=== PATIENT | female | born 1960 | race Caucasian/White ===

== ENCOUNTER → 2019-05-13 | Outpatient (CLI) | payer SELFPAY | PROVIDERS: Family Provider Nurse Practitioner Family; Visit Provider Nurse Practitioner Family | DX: K80.50 Calculus of bile duct without cholangitis or cholecystitis without obstruction (principal); S46.912S Strain of unspecified muscle, fascia and tendon at shoulder and upper arm level, left arm, sequela; X58.XXXS Exposure to other specified factors, sequela | CPT/HCPCS: 73221; 76705 ==

== ENCOUNTER → 2019-06-27 10:33 | Outpatient (BNVA) | payer MEDICARE, SELFPAY | PROVIDERS: Family Provider Nurse Practitioner Family; PCP Nurse Practitioner Family; Visit Provider Family Medicine | DX: R05 Cough (principal); M25.519 Pain in unspecified shoulder; E78.5 Hyperlipidemia, unspecified; M81.0 Age-related osteoporosis without current pathological fracture | CPT/HCPCS: 87804 ==

== ENCOUNTER → 2020-03-09 09:04 | Outpatient (BNVA) | payer MEDICARE, SELFPAY | PROVIDERS: Family Provider Nurse Practitioner Family; PCP Nurse Practitioner Family; Visit Provider Nurse Practitioner Family | DX: E78.5 Hyperlipidemia, unspecified (principal); K21.9 Gastro-esophageal reflux disease without esophagitis; M62.838 Other muscle spasm; C64.9 Malignant neoplasm of unspecified kidney, except renal pelvis; E78.00 Pure hypercholesterolemia, unspecified; Z23 Encounter for immunization; Z79.899 Other long term (current) drug therapy | CPT/HCPCS: 80053; 80061 ==

== ENCOUNTER → 2021-03-14 10:53 | Outpatient (BNVA) | payer MEDICARE, SELFPAY | PROVIDERS: Family Provider Nurse Practitioner Family; PCP Nurse Practitioner Family; Visit Provider Nurse Practitioner Family | DX: I10 Essential (primary) hypertension (principal); E78.5 Hyperlipidemia, unspecified | CPT/HCPCS: 80053; 80061 ==

== ENCOUNTER 2022-02-01 09:36 | Outpatient (CLI) | payer BC, SELFPAY ==
--- NOTE | 2022-02-01 10:00 | CT_ITS ---
WS: [id number] CT CERVICAL SPINE TECHNIQUE: Noncontrast CT of the cervical spine with coronal and sagittal reformatted images. CLINICAL INFORMATION: M54.2 - Cervicalgia COMPARISON: MRI 2014 DLP: 323.[address] scans at [facility] use at least one of these dose optimization techniques: automated e xposure control; mA and/or kV adjustment per patient size (includes targeted exams where dose is matc hed to clinical indication); or iterative reconstruction. FINDINGS: Straightening of the normal cervical lordosis. Prior postoperative changes ACDF C5-C7. Hardware appea rs in good position. Interbody fusion graft C5-C6 with evidence of bony bridging beyond the confines of the graft. Incomplete interbody fusion at C6-C7 with intradiscal lucency involving the peripheral disc space bilaterally. Small amount of bony bridging centrally. C2-C3: Normal C3-C4: Mild facet arthropathy. Osteophytic ridging. Mild central canal stenosis with tiny shallow cassandra tral protrusion. Mild bilateral bony foraminal narrowing LEFT greater than RIGHT. C4-C5: Disc osteophyte complex eccentric to the LEFT. Moderate LEFT bony foraminal narrowing. Mild ce ntral canal stenosis with slight contact of the LEFT ventral cervical cord. Mild facet arthropathy. M ild RIGHT foraminal narrowing. C5-C6: Postoperative changes ACDF. Mild LEFT foraminal narrowing. Spinal canal is patent. C6-C7: Postoperative changes anterior cervical fusion. Moderate to severe LEFT bony foraminal narrowi ng with LEFT eccentric osteophytic ridging. Spinal canal is patent. Mild RIGHT foraminal narrowing. C7-T1: Normal. Visualized posterior nasopharynx: Normal. Prevertebral soft tissues: Normal. CT/CT cervical spin wo con* [id number] IMPRESSION: 1. Straightening of the normal cervical lordosis with prior postoperative vazquez ges ACDF C5-C6 and anterior fusion C6-C7. 2. Solid-appearing bony bridging beyond the confines of the graft at C5-C6. Sm all amount of bony bridging centrally at C6-C7. 3. Fracture of the RIGHT C7 anterior fixation screw with slight angulation. 4. Mild central canal stenosis C3-C4 C4-C5 and C5-C6. 5. Moderate LEFT C4-C5 bony foraminal narrowing. Moderate LEFT C5-C6 bony fora jesus narrowing. Severe LEFT C6-C7 bony foraminal narrowing.
== END 2022-02-01 09:37 | disposition home or self-care (01) ==
LOC: RAD 09:37
PROVIDERS: PCP Nurse Practitioner Family; Visit Provider Nurse Practitioner Family
DX: M54.2 Cervicalgia (principal); M62.838 Other muscle spasm; Z98.1 Arthrodesis status; T84.296A Other mechanical complication of internal fixation device of vertebrae, initial encounter; M48.02 Spinal stenosis, cervical region
CPT/HCPCS: 72125

== ENCOUNTER 2022-03-23 06:14 | Outpatient (CLI) | payer BC, SELFPAY ==
--- NOTE | 2022-03-23 07:25 | MR_ITS ---
WS: [email or web address] MRI CERVICAL SPINE NONCONTRAST TECHNIQUE: Sagittal T1, T2 and STIR imaging. Axial T2, gradient, and fiesta imaging. CLINICAL INFORMATION: FAILED CERVICAL FUSION COMPARISON: CT February 01, 2022 and MRI January 30, 2014 FINDINGS: Straightening of the normal cervical lordosis. Prior postoperative changes ACDF C5-C7. Incomplete int erbody fusion noted at C6-C7 on the prior recent CT. Solid appearing interbody fusion C5-C6. Cord sig nal is normal. No high-grade central canal stenosis. C2-C3: Normal. C3-C4: Mild disc osteophytic ridging. Moderate facet arthropathy. Tiny central protrusion. Slight eff acement of ventral thecal sac. Spinal canal is patent. Foramen are patent. C4-C5: Prior postoperative changes ACDF. Mild LEFT and no significant RIGHT bony foraminal narrowing. Mild facet arthropathy. Spinal canal is patent. C5-C6: Postoperative changes ACDF. Mild LEFT bony foraminal narrowing. Mild facet arthropathy. Spinal canal is patent. C6-C7: Postoperative changes ACDF. Mild LEFT and no significant RIGHT foraminal narrowing. Spinal can al is patent. C7-T1: Osteophytic ridging with mild bilateral bony foraminal narrowing. Spinal canal is patent. No remarkable changes since the recent CT February 01, 2022. Alignment is unchanged since the MRI in 2013. Visualized brain stem structures: Normal. Prevertebral soft tissues: Normal. MR/MR cervical spin wo con* [id number] IMPRESSION: 1. Straightening of the normal cervical lordosis with prior ACDF C5-C7. 2. Cord signal is normal. No significant central canal stenosis. 3. Mild LEFT bony foraminal narrowing C4-C5 C5-C6 and C6-C7 worse at C6-C7. 4. Mild bilateral C7-T1 bony foraminal narrowing. 5. Moderate facet arthropathy C3-C4 and mild to moderate facet arthropathy C4- C5.
== END 2022-03-23 06:15 | disposition home or self-care (01) ==
PROVIDERS: PCP Nurse Practitioner Family; Visit Provider Nurse Practitioner Gerontology
DX: Z98.1 Arthrodesis status (principal); M47.892 Other spondylosis, cervical region; M48.02 Spinal stenosis, cervical region
CPT/HCPCS: 72141

== ENCOUNTER → 2022-09-15 08:53 | Outpatient (BNVA) | payer BC, SELFPAY | PROVIDERS: PCP Nurse Practitioner Family; Visit Provider Nurse Practitioner Family | DX: R53.83 Other fatigue (principal); E78.5 Hyperlipidemia, unspecified; I10 Essential (primary) hypertension | CPT/HCPCS: 80053; 80061; 84443 ==

== ENCOUNTER → 2022-12-18 15:44 | Outpatient (BNVA) | payer BC, SELFPAY | PROVIDERS: PCP Nurse Practitioner Family; Visit Provider Nurse Practitioner Family | DX: R53.83 Other fatigue (principal); I10 Essential (primary) hypertension | CPT/HCPCS: 80053; 85025 ==

== ENCOUNTER → 2023-05-02 09:00 | Outpatient (BNVA) | payer BC, SELFPAY | PROVIDERS: PCP Nurse Practitioner Family; Visit Provider Nurse Practitioner Women's Health | DX: R53.83 Other fatigue (principal) | CPT/HCPCS: 84439; 84443; 84481 ==

== ENCOUNTER 2023-05-21 11:04 | Outpatient (CLI) | payer MEDICARE, SELFPAY ==
--- NOTE | 2023-05-21 11:07 | MM_ITS ---
WS: [email or web address] BILATERAL 3D TOMOSYNTHESIS DIGITAL SCREENING MAMMOGRAPHY WITH CAD CLINICAL INFORMATION: Z12.39 - Encounter for other screening for malignant neop... HISTORY: Screening mammogram. No current complaints. COMPARISON: 2020 TECHNIQUE: Bilateral CC and MLO views. FINDINGS: The breasts are composed of heterogeneous fibroglandular density tissue, which can limit the detectio n of small underlying mass lesions. No suspicious mass, asymmetry, calcifications, or architectural d istortion. No evidence of malignancy. Vascular calcification. Incidental punctate calcifications. IMPRESSION: MM/[place] [id number] BI-RADS: 2-Benign FOLLOW UP: 1 Year Follow-up Recommend return to annual screening mammography.
== END 2023-05-21 11:05 | disposition home or self-care (01) ==
LOC: RAD 11:04
PROVIDERS: PCP Nurse Practitioner Family; Visit Provider Nurse Practitioner Women's Health
DX: Z12.31 Encounter for screening mammogram for malignant neoplasm of breast (principal)
CPT/HCPCS: 77063; 77067

== ENCOUNTER → 2023-08-13 15:04 | Outpatient (BNVA) | payer MEDICARE, SELFPAY | PROVIDERS: PCP Nurse Practitioner Family; Visit Provider Nurse Practitioner Family | DX: I10 Essential (primary) hypertension (principal); R53.83 Other fatigue | CPT/HCPCS: 80053; 80061; 85025 ==

== ENCOUNTER → 2023-09-18 12:33 | Outpatient (BNVA) | payer MEDICARE, SELFPAY | PROVIDERS: PCP Nurse Practitioner Family; Visit Provider Nurse Practitioner Family | DX: R05.9 Cough, unspecified (principal) | CPT/HCPCS: 71046 ==

== ENCOUNTER 2024-02-04 06:00 | Outpatient (CLI) | payer MEDICARE, SELFPAY | END 2024-02-04 06:01 | disposition home or self-care (01) | LOC: RAD 02-15 09:19 | PROVIDERS: PCP Nurse Practitioner Family; Visit Provider Nurse Practitioner Family | DX: I10 Essential (primary) hypertension (principal) | CPT/HCPCS: 80053; 80061 ==

== ENCOUNTER 2024-02-20 13:09 | Outpatient (CLI) | payer MEDICARE, SELFPAY ==
--- NOTE | 2024-02-20 13:30 | XR_ITS ---
WS: [email or web address] DEXA (DUAL ENERGY X-RAY ABSORPTIOMETRY) Bone mineral density was performed using a [employer] machine. HISTORY: M81.0 - Age-related osteoporosis without current patholog... COMPARISON: None available. Lumbar spine BMD (L1-L4): 1.098 g/cm2 T score: -0.7 Z score: 0.3 Total hip BMD: Left: 1.034 g/cm2. T score: 0.2 Z score: 1.0 Right: 1.058 g/cm2. T score: 0.4 Z score: 1.2 10 year probability of a major osteoporotic fracture is 6.6%. XR/XR DEXA axial skeleton* [id number] IMPRESSION: NORMAL BONE MINERAL DENSITY based upon the WHO classification for females.
== END 2024-02-20 13:10 | disposition home or self-care (01) ==
LOC: RAD 13:10
PROVIDERS: PCP Nurse Practitioner Family; Visit Provider Nurse Practitioner Family
DX: Z13.820 Encounter for screening for osteoporosis (principal)
CPT/HCPCS: 77080

== ENCOUNTER → 2024-04-28 09:41 | Outpatient (BNVA) | payer MEDICARE, SELFPAY | PROVIDERS: PCP Nurse Practitioner Family; Visit Provider Nurse Practitioner Women's Health | DX: E66.3 Overweight (principal) | CPT/HCPCS: 83036 ==

== ENCOUNTER → 2024-05-02 10:23 | Outpatient (BNVA) | payer MEDICARE, SELFPAY | PROVIDERS: PCP Nurse Practitioner Family; Visit Provider Emergency Medicine | DX: M25.511 Pain in right shoulder (principal) | CPT/HCPCS: 73030 ==

== ENCOUNTER 2024-06-06 09:49 | Outpatient (CLI) | payer MEDICARE, SELFPAY ==
--- NOTE | 2024-06-06 09:54 | MM_ITS ---
WS: [id number] Bilateral screening 3D tomosynthesis digital mammogram, 06/06/2024 10:02 AM Clinical Data: SCREENING Comparison: 05/21/2023, 08/04/2020, 02/18/2020, 07/11/2019, 07/02/2019, 06/30/2019 04/02/2018, 12/19/2016, 04/14/2015, 04/22/2013, 02/01/2013, 03/11/2010, 07/14/2008. Findings: No spiculated masses or clustered calcifications are seen. There are no secondary signs of carcinoma . MM/MM scr BI tomosynthesis [id number] Impression: Negative bilateral mammogram unchanged. Recommend annual screening mammograms. BIRADS: 1 - Negative FOLLOW UP: 1 Year Follow-up DENSITY: The breasts are heterogeneously dense, which may obscure small masses. The CAD fact checker was used
== END 2024-06-06 09:50 | disposition home or self-care (01) ==
LOC: RAD 09:51
PROVIDERS: PCP Nurse Practitioner Family; Visit Provider Nurse Practitioner Family
DX: Z12.31 Encounter for screening mammogram for malignant neoplasm of breast (principal); R92.333 Mammographic heterogeneous density, bilateral breasts
CPT/HCPCS: 77063; 77067

== ENCOUNTER → 2024-08-28 11:13 | Outpatient (BNVA) | payer MEDICARE, SELFPAY | PROVIDERS: PCP Nurse Practitioner Family; Visit Provider Nurse Practitioner Family | DX: I10 Essential (primary) hypertension (principal) | CPT/HCPCS: 80053; 80061 ==